=== PATIENT | female | born 1950 | race Caucasian/White ===

== ENCOUNTER 2016-05-27 18:11 | Emergency (ER) | payer MEDICARE, OTHER ==
[~2016-05-27] VITALS: Ht 149.9 cm; Wt 61.7 kg
[~2016-05-27 18:11] MED LIST: AMIO200T2 PO; AMLO1TAB95 PO; ASPI81TA44 PO; BISA10SU55 RC; BUDE10.2 IH; CLON0.2T PO; CYCL10TA2 PO; DIPH25CA58 PO; DOCU-27 PO; DRON5CAP PO; ESCI10TA10 PO; FERR-26 PO; FLUD0.1T PO; FURO40TA4 PO; HYDR-2666 PO; HYDR-2679 PO; HYDR-2762 PO; HYDR-971 PO; HYDR25SU RC; IPRA4AER IH; LACT1CAP6 PO; LEVO500T38 PO; LIDO700A4 TP; LOSA100T2 PO; LOSA50TA2 PO; MAGN2400 PO; METO100T11 PO; METO25TA4 PO; OMEP40CA5 PO; ONDA4TAB10 SL; PANT40TA3 PO; POTA10CA PO; POTA99TA PO; PRED20TA PO; RANI150T6 PO; SUCR1TAB PO; SULF1TAB24 PO; VENTOLIN HFA18 GM IH; VENTOLIN HFA18 GM INH
[2016-05-27] MEDS ORDERED: HYDROCODONE/APAP 5/325MG TABLET. PO ONE (20:00)
[2016-05-27 20:04] VITALS: BP 155/97
[2016-05-27] MEDS ORDERED: HYDR-971 PO (20:10)
[2016-05-27] MEDS ORDERED: NAPR500T3 PO (20:10)
--- NOTE | 2016-05-27 20:10 | PHYS DOC ---
Past Medical History Past Medical History: Asthma, CAD, COPD, GERD, High Cholesterol, Hypertension, Pneumonia, Stroke, Other Additional Past Medical Histor: low potassium, CHRONIC PAIN, Stomach Ulcers, "Bad L rotator cuff" Past Surgical History: Cholecystectomy, Hysterectomy, Tonsillectomy, Tubal ligation, Other Additional Past Surgical Histo: rods in her LEFT leg AND LEFT ARM; cardiac cath with stents Additional Information: 04/14 ppd Alcohol Use: None Drug Use: None Adult General Chief Complaint Chief Complaint: UPPER EXTREMITY PAIN HPI HPI This is a 66-year-old female who had seen multiple times before for a variety of pain complaints who presents today with 3-4 days of ongoing left wrist and forearm pain and some mild numbness and tingling in her first 3 digits that she states is worse in the morning upon awakening. She denies any trauma to the left arm whatsoever. She denies any chest pain or shortness of breath she denies any fever or chills. She additionally states she's having chronic pain in all her joints and especially her right knee. She states she's normal prescribed [place] but has run out of her pain meds. She is scheduled to follow with her primary care doctor in the next several weeks but states her pain is too significant for that follow-up. Review of Systems Review of Systems Constitutional: Denies fever or chills [] Eyes: Denies change in visual acuity, redness, or eye pain [] HENT: Denies nasal congestion or sore throat [] Respiratory: Denies cough or shortness of breath [] Cardiovascular: No additional information not addressed in HPI [] GI: Denies abdominal pain, nausea, vomiting, bloody stools or diarrhea [] : Denies dysuria or hematuria [] Musculoskeletal: Denies back pain or joint pain [] Integument: Denies rash or skin lesions [] Neurologic: Denies headache, focal weakness or sensory changes [] Endocrine: Denies polyuria or polydipsia [] Current Medications Current Medications Current Medications Medications (Trade) Dose Ordered Sig/Hitesh Start Time Stop Time Status Last Admin Dose Admin Acetaminophen/ Hydrocodone Bitart (Lortab 5/325) 1 tab 1X ONCE 05/27/16 20:00 05/27/16 20:03 DC 05/27/16 20:14 1 TAB Allergies Allergies Allergies Coded Allergies Type Severity Reaction Last Updated Verified aspirin Adverse Reaction Intermediate Nausea 04/12/16 Yes tolmetin sodium Adverse Reaction Intermediate Nausea 04/12/16 Yes Physical Exam Physical Exam Constitutional: Well developed, well nourished, no acute distress, non-toxic appearance. [] HENT: Normocephalic, atraumatic, bilateral external ears normal, oropharynx moist, no oral exudates, nose normal. [] Eyes: PERRLA, EOMI, conjunctiva normal, no discharge. [] Neck: Normal range of motion, no tenderness, supple, no stridor. [] Cardiovascular:Heart rate regular rhythm, no murmur [] Lungs & Thorax: Bilateral breath sounds clear to auscultation [] Abdomen: Bowel sounds normal, soft, no tenderness, no masses, no pulsatile masses. [] Skin: Warm, dry, no erythema, no rash. [] Back: No tenderness, no CVA tenderness. [] Extremities: Mild tenderness to the left wrist and forearm, there is no obvious swelling or deformity, there is no erythema, no cyanosis, no clubbing, ROM intact, no edema. [] Neurologic: Alert and oriented X 3, normal motor function, normal sensory function, no focal deficits noted. [] Psychologic: Affect normal, judgement normal, mood normal. [] Current Patient Data Vital Signs Vital Signs Date Time Temp Pulse Resp B/P Pulse Ox O2 Delivery O2 Flow Rate FiO2 05/27/16 20:14 Room Air 05/27/16 20:04 76 17 155/97 99 05/27/16 18:45 97.6 97.6 EKG EKG EKG as interpreted by me shows a sinus rhythm with a rate of 75 bpm. There are no acute ST findings on this EKG. Radiology/Procedures Radiology/Procedures [] Course & Med Decision Making Course & Med Decision Making Pertinent Labs and Imaging studies reviewed. (See chart for details) This 66 yo old female has symptoms and history concerning for a possible carpal tunnel syndrome. I will be placing the patient in a wrist splint and prescribing her a course of Naprosyn for the next several days as well as a few [place] tablets that she's instructed to take only at night to help with her pain. I discussed the need that she is to follow closely with her primary care doctor and to remain in her splint until that time and to especially wear it at night. There is no indication to perform any laboratory workup or imaging as her history denies any trauma and there is no significant findings on my physical exam. Dragon Disclaimer Dragon Disclaimer This electronic medical record was generated, in whole or in part, using a voice recognition dictation system. Departure Departure Impression: Primary Impression: Wrist pain, left Disposition: 01 HOME, SELF-CARE Admitting Physician: Other Condition: STABLE Referrals: UNKNOWN PCP NAME (PCP) Patient Instructions: Carpal Tunnel Syndrome, [id number], Wrist Splint, Easy- to-Read Additional Instructions: Please remain in your wrist brace until you can receive follow up. Take your pain medication at night to help rest. Take your anti-inflammatories during the day as prescribed. Return to the ER if you develop any worsening of your symptoms. Scripts Naproxen 500 Mg [id number] Mg PO BID #10 Prov:OMID KEY DO 05/27/16 Hydrocodone/Apap 5-325 ([place] 5-325 Tablet)1 Each Tablet1 Tab PO PRN Q6HRS PRN PAIN #8 TAB Prov:OMID KEY DO 05/27/16 OMID KEY DO May 27, 2016 20:10
--- NOTE | 2016-05-28 08:16 | EKG ---
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
== END 2016-05-27 20:15 | disposition home or self-care (01) ==
LOC: ER 18:11
DX: M25.532 Pain in left wrist (principal); M79.632 Pain in left forearm; R20.0 Anesthesia of skin; R20.2 Paresthesia of skin; G89.29 Other chronic pain; J45.909 Unspecified asthma, uncomplicated; I25.10 Atherosclerotic heart disease of native coronary artery without angina pectoris; J44.9 Chronic obstructive pulmonary disease, unspecified; K21.9 Gastro-esophageal reflux disease without esophagitis; E78.00 Pure hypercholesterolemia, unspecified; I10 Essential (primary) hypertension; F17.210 Nicotine dependence, cigarettes, uncomplicated; Z95.5 Presence of coronary angioplasty implant and graft; Z86.73 Personal history of transient ischemic attack (TIA), and cerebral infarction without residual deficits; Z87.01 Personal history of pneumonia (recurrent); Z88.8 Allergy status to other drugs, medicaments and biological substances; Z88.6 Allergy status to analgesic agent
CPT/HCPCS: 29125; 93005; 99283-25

== ENCOUNTER 2016-06-21 22:20 | Emergency (ER) | payer MEDICARE, OTHER ==
[~2016-06-21 22:20] MED LIST changes: +NAPR500T3 PO
[2016-06-21 22:27] VITALS: BP 147/93
--- NOTE | 2016-06-21 22:51 | PHYS DOC ---
Past Medical History Past Medical History: Asthma, CAD, COPD, GERD, High Cholesterol, Hypertension, Pneumonia, Stroke, Other Additional Past Medical Histor: low potassium, CHRONIC PAIN, Stomach Ulcers, "Bad L rotator cuff" Past Surgical History: Cholecystectomy, Hysterectomy, Tonsillectomy, Tubal ligation, Other Additional Past Surgical Histo: rods in her LEFT leg AND LEFT ARM; cardiac cath with stents Alcohol Use: None Drug Use: None Adult General Chief Complaint Chief Complaint: CHEST PAIN HPI HPI Patient is a 66 year old female with uncontrolled GERD who presents by EMS for epigastric abdominal burning pain radiating into her chest after choking on a piece of meat. She felt a piece of meat catch in her throat, she coughed until it came up. She then had 2 more episodes of emesis that were nonbloody and nonbilious. She has no further nausea. States her pain is exactly like prior GERD-like pain. She denies fever or chills, dyspnea, palpitations, diaphoresis, lightheadedness, diarrhea, constipation, dysuria. Review of Systems Review of Systems Constitutional: Denies fever or chills [] Eyes: Denies change in visual acuity, redness, or eye pain [] HENT: Denies nasal congestion or sore throat [] Respiratory: Denies cough or shortness of breath [] Cardiovascular: No additional information not addressed in HPI [] GI: Denies bloody stools or diarrhea [] : Denies dysuria or hematuria [] Musculoskeletal: Denies back pain or joint pain [] Integument: Denies rash or skin lesions [] Neurologic: Denies headache, focal weakness or sensory changes [] Endocrine: Denies polyuria or polydipsia [] Current Medications Current Medications Current Medications Medications (Trade) Dose Ordered Sig/[facility] Start Time Stop Time Status Last Admin Dose Admin Multi-Ingredient Mouthwash/Gargle (Gi Cocktail Single Dose) 15 ml 1X ONCE 06/21/16 23:00 06/21/16 23:01 DC 06/21/16 22:59 15 ML Allergies Allergies Allergies Coded Allergies Type Severity Reaction Last Updated Verified aspirin Adverse Reaction Intermediate Nausea 04/12/16 Yes tolmetin sodium Adverse Reaction Intermediate Nausea 04/12/16 Yes Physical Exam Physical Exam Constitutional: Well developed, well nourished, no acute distress, non-toxic appearance. [] HENT: Normocephalic, atraumatic, bilateral external ears normal, oropharynx moist, no oral exudates, nose normal. [] Eyes: PERRLA, EOMI. [] Neck: Normal range of motion, supple. [] Cardiovascular:Heart rate regular rhythm [] Lungs & Thorax: Bilateral breath sounds clear to auscultation [] Abdomen: Bowel sounds normal, soft, no tenderness. [] Skin: Warm, dry, no erythema, no rash. [] Back: Normal ROM. [] Extremities: No tenderness, ROM intact, no edema. [] Neurologic: Alert and oriented X 3, normal motor function, normal sensory function, no focal deficits noted. [] Psychologic: Affect normal, judgement normal, mood normal. [] Current Patient Data Vital Signs Vital Signs Date Time Temp Pulse Resp B/P Pulse Ox O2 Delivery O2 Flow Rate FiO2 06/21/16 22:27 97.8 70 20 147/93 99 Room Air 97.8 Lab Values Laboratory Tests Test 06/21/16 22:46 Sodium Level 143mmol/L (136-145) Potassium Level 3.8mmol/L (3.5-5.1) Chloride Level 105mmol/L (98-107) Carbon Dioxide Level 28mmol/L (21-32) Anion Gap 10 (6-14) Blood Urea Nitrogen 14mg/dL (7-20) Creatinine 0.7mg/dL (0.6-1.0) Estimated GFR (Cockcroft-Gault) 83.5 Glucose Level 134mg/dL (70-99) H Calcium Level 8.6mg/dL (8.5-10.1) Laboratory Tests 06/21/16 22:46 EKG EKG EKG as interpreted by me as normal sinus rhythm, rate 68, no ST-T changes, normal intervals, no ectopy Course & Med Decision Making Course & Med Decision Making Pertinent Labs and Imaging studies reviewed. (See chart for details) Workup is unremarkable. She is feeling better after medications. She is tolerating oral intake. Return precautions given. She understands and agrees with plan. Dragon Disclaimer Dragon Disclaimer This electronic medical record was generated, in whole or in part, using a voice recognition dictation system. Departure Departure Impression: Primary Impression: Epigastric abdominal pain Disposition: 01 HOME, SELF-CARE Condition: STABLE Referrals: UNKNOWN PCP NAME (PCP) Patient Instructions: Diet for Gastroesophageal Reflux Disease, Adult, Easy-to- Read Additional Instructions: Take famotidine to help with GERD. Follow-up with your primary care doctor. Return for any concerns. Scripts Famotidine 20 Mg [id number] Mg PO BID #30 TAB Prov:Courtney MAIN MD 06/21/16 Courtney MAIN MD Jun 21, 2016 22:51
[2016-06-21] MEDS ORDERED: LIDO:MAALOX:DONNATAL 1:1:1 15 ML SINGLE DOSE SWSW ONE (23:00)
[2016-06-21 23:06] LABS: CALCIUM 8.6 mg/dL (8.5-10.1); CREATININE 0.7 mg/dL (0.6-1.0); GFR 83.5; POTASSIUM 3.8 mmol/L (3.5-5.1)
[2016-06-21] MEDS ORDERED: FAMO20TA5 PO (23:33)
--- NOTE | 2016-06-22 12:51 | EKG ---
[facility] [address] [place] [address] Test Date: 2016-06-21 Test Time: 22:25:22 Pat Name: JAMISON EVANS Department: Room: Gender: F [employer] Cook: : 1950 Requested By: Courtney MAIN Order Number: [id number] Reading MD: Measurements Intervals [place] Rate: 68 P: -66 [place]: 110 QRS: 0 QRSD: 78 T: 64 QT: 428 QTc: 460 Interpretive Statements SUPRAVENTRICULAR RHYTHM LEFTWARD AXIS T ABNORMALITY IN HIGH LATERAL LEADS RI6.01 Unconfirmed report No previous ECG available for comparison
== END 2016-06-21 23:49 | disposition home or self-care (01) ==
LOC: ER 22:20
DX: R10.13 Epigastric pain (principal); R11.10 Vomiting, unspecified; R05 Cough; K21.9 Gastro-esophageal reflux disease without esophagitis; E78.00 Pure hypercholesterolemia, unspecified; I10 Essential (primary) hypertension; Z86.73 Personal history of transient ischemic attack (TIA), and cerebral infarction without residual deficits; I25.10 Atherosclerotic heart disease of native coronary artery without angina pectoris; J44.0 Chronic obstructive pulmonary disease with (acute) lower respiratory infection; J45.909 Unspecified asthma, uncomplicated; Z90.710 Acquired absence of both cervix and uterus; Z90.49 Acquired absence of other specified parts of digestive tract; Z98.51 Tubal ligation status; Z90.89 Acquired absence of other organs; Z95.5 Presence of coronary angioplasty implant and graft
CPT/HCPCS: 36415; 80048; 93005; 99285-25

== ENCOUNTER 2016-07-20 14:22 | Emergency (ER) | payer MEDICARE, OTHER ==
[~2016-07-20] VITALS: Ht 149.9 cm; Wt 62.6 kg
[2016-07-20 14:22] VITALS: BP 188/124
[~2016-07-20 14:22] MED LIST changes: +FAMO20TA5 PO
[2016-07-20] MEDS ORDERED: HYDR-971 PO (14:59)
--- NOTE | 2016-07-20 14:59 | PHYS DOC ---
Past Medical History Past Medical History: Asthma, CAD, COPD, GERD, High Cholesterol, Hypertension, Pneumonia, Stroke, Other Additional Past Medical Histor: low potassium, CHRONIC PAIN, Stomach Ulcers, "Bad L rotator cuff" Past Surgical History: Cholecystectomy, Hysterectomy, Tonsillectomy, Tubal ligation, Other Additional Past Surgical Histo: rods in her LEFT leg AND LEFT ARM; cardiac cath with stents Alcohol Use: None Drug Use: None Adult General Chief Complaint Chief Complaint: UPPER EXTREMITY PAIN HPI HPI 66-year-old female with a history of chronic shoulder pain presents with agonizing pain in her shoulders. She states she is worse because she is out of her hydrocodone at home. She denies any new injury. She states this pain is the same as it always is and this helped with hydrocodone. She denies any chest pain or shortness of breath. [] Review of Systems Review of Systems Constitutional: Denies fever or chills [] Eyes: Denies change in visual acuity, redness, or eye pain [] HENT: Denies nasal congestion or sore throat [] Respiratory: Denies cough or shortness of breath [] Cardiovascular: No additional information not addressed in HPI [] GI: Denies abdominal pain, nausea, vomiting, bloody stools or diarrhea [] : Denies dysuria or hematuria [] Musculoskeletal: Per history of present illness [] Integument: Denies rash or skin lesions [] Neurologic: Denies headache, focal weakness or sensory changes [] Endocrine: Denies polyuria or polydipsia [] Current Medications Current Medications Current Medications Medications (Trade) Dose Ordered Sig/Hitesh Start Time Stop Time Status Last Admin Dose Admin Acetaminophen/ Hydrocodone Bitart (Lortab 5/325) 2 tab 1X ONCE 07/20/16 15:00 07/20/16 15:01 UNV Allergies Allergies Allergies Coded Allergies Type Severity Reaction Last Updated Verified aspirin Adverse Reaction Intermediate Nausea 04/12/16 Yes tolmetin sodium Adverse Reaction Intermediate Nausea 04/12/16 Yes Physical Exam Physical Exam Constitutional: Well developed, well nourished, no acute distress, non-toxic appearance. [] HENT: Normocephalic, atraumatic, bilateral external ears normal, oropharynx moist, no oral exudates, nose normal. [] Eyes: PERRLA, EOMI, conjunctiva normal, no discharge. [] Neck: Normal range of motion, no tenderness, supple, no stridor. [] Cardiovascular:Heart rate regular rhythm, no murmur [] Lungs & Thorax: Bilateral breath sounds clear to auscultation [] Abdomen: Bowel sounds normal, soft, no tenderness, no masses, no pulsatile masses. [] Skin: Warm, dry, no erythema, no rash. [] Back: No tenderness, no CVA tenderness. [] Extremities: No tenderness, no cyanosis, no clubbing, ROM intact, no edema. [] Neurologic: Alert and oriented X 3, normal motor function, normal sensory function, no focal deficits noted. [] Psychologic: Affect normal, judgement normal, mood normal. [] Current Patient Data Vital Signs Vital Signs Date Time Temp Pulse Resp B/P Pulse Ox O2 Delivery O2 Flow Rate FiO2 07/20/16 14:22 98.4 81 20 97 Room Air 98.4 EKG EKG [] Radiology/Procedures Radiology/Procedures [] Course & Med Decision Making Course & Med Decision Making Pertinent Labs and Imaging studies reviewed. (See chart for details) [ED course: Evaluation reveals a 66-year-old female with chronic pain. I will write her prescription for the next 3 days of pain medicine she needs to follow- up with her pain physician this week for recheck.] Dragon Disclaimer Dragon Disclaimer This electronic medical record was generated, in whole or in part, using a voice recognition dictation system. Departure Departure Impression: Primary Impression: Shoulder pain, bilateral Disposition: HOME, SELF-CARE Condition: STABLE Referrals: UNKNOWN PCP NAME (PCP) Patient Instructions: Chronic Pain, Chronic Pain Management Additional Instructions: Thank you for allowing us to participate in your care today. Followup with your primary care physician in 3 days if your symptoms do not improve. Return to the emergency department you have any new or concerning findings. This should be evaluated by the primary care physician and any necessary consulting services for continued management within a few days after discharge. Return to emergency room if you have any new or concerning symptoms including but not limited to fever, chills, nausea, vomiting, intractable pain, any new rashes, chest pain, shortness of air, uncontrolled bleeding, difficulty breathing, and/or vision loss. You may have been prescribed medication that can change in your level of thinking and ability to operate machinery. These medications include hydrocodone and Ativan. Also, Benadryl has been known to do this as well. Be sure to check with your pharmacist and ask if the medications you've prescribed can affect your level of consciousness. I recommend not operating heavy machinery or driving while on medication such as these. Scripts Hydrocodone/Apap 5-325 ([place] 5-325 Tablet)1 Each Tablet1 Tab PO PRN Q6HRS PRN PAIN #14 TAB Prov:MACK CAR DO 07/20/16 Problem Qualifiers Primary Impression: Shoulder pain, bilateral Chronicity: chronic Qualified Code: M25.512 - Pain in left shoulder MACK CAR DO Jul 20, 2016 14:59
[2016-07-20] MEDS ORDERED: HYDROCODONE/APAP 5/325MG TABLET. PO ONE (15:00)
== END 2016-07-20 15:32 | disposition home or self-care (01) ==
LOC: ER 14:22
DX: G89.29 Other chronic pain (principal); M25.511 Pain in right shoulder; M25.512 Pain in left shoulder; J45.909 Unspecified asthma, uncomplicated; I25.10 Atherosclerotic heart disease of native coronary artery without angina pectoris; K21.9 Gastro-esophageal reflux disease without esophagitis; E78.00 Pure hypercholesterolemia, unspecified; I10 Essential (primary) hypertension; J44.9 Chronic obstructive pulmonary disease, unspecified; Z86.73 Personal history of transient ischemic attack (TIA), and cerebral infarction without residual deficits; Z88.6 Allergy status to analgesic agent; Z88.8 Allergy status to other drugs, medicaments and biological substances
CPT/HCPCS: 99283

== ENCOUNTER 2016-08-25 13:05 | Emergency (ER) | payer MEDICARE, OTHER ==
[~2016-08-25] VITALS: Ht 147.3 cm; Wt 64.4 kg
[~2016-08-25 13:05] MED LIST changes: -POTA10CA PO; +POTASSIUM CHLO10 MEQ PO
--- NOTE | 2016-08-25 13:43 | PHYS DOC ---
Past Medical History Past Medical History: Asthma, CAD, COPD, GERD, High Cholesterol, Hypertension, Pneumonia, Stroke, Other Additional Past Medical Histor: low potassium, CHRONIC PAIN, Stomach Ulcers, "Bad L rotator cuff" Past Surgical History: Cholecystectomy, Hysterectomy, Tonsillectomy, Tubal ligation, Other Additional Past Surgical Histo: rods in her LEFT leg AND LEFT ARM; cardiac cath with stents Alcohol Use: None Drug Use: None Adult General Chief Complaint Chief Complaint: RIB PAIN HPI HPI Patient is a 66 year old female who presents with complaint of right-sided rib pain. Patient states that she suffered a fall 2 days ago at her home. Patient states that she tripped over her bed and fell into the door frame of her closet in her bedroom. Patient denied any lightheadedness or dizziness prior to the fall. Patient states that she hit the right side of her chest as well as the right side of her head. Patient denies any loss consciousness. Patient states that she has been having worsening severe pain along the right side of her rib cage since the fall. Patient has been ambulatory but states that she has been having difficulty with bending over as well as with lifting due to pain. The patient states that she is on chronic pain medication and has been out of her medication for the past 5 days. The patient states that she is not due to see her primary doctor until September 03. Patient takes hydrocodone 7.5 mg tablets for treatment of chronic back pain. Patient denies any other symptoms currently. Patient rates her pain currently is 10 out of 10. Review of Systems Review of Systems Constitutional: Denies fever or chills [] Eyes: Denies change in visual acuity, redness, or eye pain [] HENT: Denies nasal congestion or sore throat [] Respiratory: Denies cough or shortness of breath [] Cardiovascular: Denies substernal chest pain or edema [] GI: Denies abdominal pain, nausea, vomiting, bloody stools or diarrhea [] : Denies dysuria or hematuria [] Musculoskeletal: Right-sided rib pain [] Integument: Denies rash or skin lesions [] Neurologic: Headache, denies focal weakness or sensory changes [] Current Medications Current Medications Current Medications Medications (Trade) Dose Ordered Sig/Hitesh Start Time Stop Time Status Last Admin Dose Admin Acetaminophen/ Hydrocodone Bitart (Lortab 7.5/325) 1 tab 1X ONCE 08/25/16 15:45 08/25/16 15:46 DC 08/25/16 15:24 1 TAB Hydromorphone HCl (Dilaudid) 1 mg 1X ONCE 08/25/16 13:45 08/25/16 13:46 DC 08/25/16 13:50 1 MG Ondansetron HCl (Zofran Odt) 4 mg 1X ONCE 08/25/16 13:45 08/25/16 13:46 DC 08/25/16 13:50 4 MG Allergies Allergies Allergies Coded Allergies Type Severity Reaction Last Updated Verified aspirin Adverse Reaction Intermediate Nausea 04/12/16 Yes tolmetin sodium Adverse Reaction Intermediate Nausea 04/12/16 Yes Physical Exam Physical Exam Constitutional: Alert, afebrile, appears in mild discomfort. [] HENT: Normocephalic, atraumatic, bilateral external ears normal, oropharynx moist, no oral exudates, nose normal. [] Eyes: PERRLA, EOMI, conjunctiva normal, no discharge. [] Neck: Normal range of motion, no tenderness, supple, no stridor. [] Cardiovascular:Heart rate regular rhythm, no murmur [] Lungs & Thorax: Tenderness to palpation along right rib cage at midaxillary line , lungs clear to auscultation bilaterally, no palpable crepitus [] Abdomen: Bowel sounds normal, soft, no tenderness, no masses, no pulsatile masses. [] Skin: Warm, dry, no erythema, no rash. [] Back: No tenderness, no CVA tenderness. [] Extremities: Right elbow abrasion measuring 2 cm, no cyanosis, no clubbing, ROM intact, no edema. [] Neurologic: Alert and oriented X 3, normal motor function, normal sensory function, no focal deficits noted. [] Current Patient Data Vital Signs Vital Signs Date Time Temp Pulse Resp B/P (MAP) Pulse Ox O2 Delivery O2 Flow Rate FiO2 08/25/16 15:24 Room Air 08/25/16 15:16 109/82 (91) 92 08/25/16 14:59 74 08/25/16 13:39 22 08/25/16 13:08 99.9 99.9 EKG EKG Interpreted by me: Heart rate 85, sinus rhythm, normal intervals, normal axis, no acute ST/T-wave abnormalities present [] Radiology/Procedures Radiology/Procedures [facility] [address] [place] [address] IMAGING REPORT Signed PATIENT: JAMISON EVANS ACCOUNT: [id number] : 1950 LOCATION: ER AGE: 66 SEX: F EXAM STATUS: REG ER ORD. PHYSICIAN: BG HARO MD REASON: fall 2 days ago, right-sided rib pain PROCEDURE: RIBS RIGHT AND PA CHEST Examination: PA view the chest with right RIBS History: History of fall 3 days prior, pain mid to lower ribs Comparison: 04/12/2016 Findings : The cardiomediastinal silhouette grossly appears unremarkable. There is no acute infiltrate or visualize pneumothorax identified. Examination limited because of demineralization. Old fractures of the right upper posterior ribs are again identified. An obvious displaced acute right rib fracture is not clearly identified. Impression: 1. No acute cardiopulmonary findings. 2. An obvious displaced right rib fracture is not identified. 2. Old posterior right rib fractures again identified. DICTATED and SIGNED BY: LYNETTE NAVARRO MD DATE: 08/25/16 1438 CC: BG HARO MD; NO PCP ~ [] Course & Med Decision Making Course & Med Decision Making Pertinent Labs and Imaging studies reviewed. (See chart for details) Patient's x-rays were negative for acute fractures. I spoke with the patient's primary physician, Dr. Holland, who confirmed that the patient has an appointment on September 03, 2016. She gave permission to write a small prescription to the patient for hydrocodone to help treat her symptoms until she can follow-up at her next appointment. Spoke with the patient regarding plan of care and she is in agreement. The patient was advised return to emergency department for any worsening symptoms. Patient voiced understanding and in agreement with treatment plan. Dragon Disclaimer Dragon Disclaimer This electronic medical record was generated, in whole or in part, using a voice recognition dictation system. Departure Departure Impression: Primary Impression: Contusion of rib on right side Disposition: HOME, SELF-CARE Condition: IMPROVED Referrals: NON,STAFF (PCP) Patient Instructions: Rib Contusion Additional Instructions: Follow-up with your primary doctor in 1 week. Return to the emergency department for any worsening symptoms. Scripts Hydrocodone Bit/Acetaminophen (HYDROCODONE-APAP 7.5-325 ) 1 Each Tablet 1 TAB PO Q6HRS Y for PAIN, #20 TAB 0 Refills Prov: BG HARO MD 08/25/16 Problem Qualifiers Primary Impression: Contusion of rib on right side Encounter type: initial encounter Qualified Codes: S20.211A - Contusion of right front wall of thorax, initial encounter BG HARO MD August 25, 2016 13:43
[2016-08-25] MEDS ORDERED: HYDROmorphone 2 MG/ML VIAL IM ONE (13:45)
[2016-08-25] MEDS ORDERED: ONDANSETRON ODT 4 MG TAB.RAPDIS. PO ONE (13:45)
[2016-08-25] MEDS ORDERED: METO25TA4 PO (14:07)
[2016-08-25] MEDS ORDERED: AMLO1TAB95 PO (14:07)
[2016-08-25] MEDS ORDERED: POTA20TA82 PO (14:07)
[2016-08-25] MEDS ORDERED: OMEP20TA PO (14:07)
--- NOTE | 2016-08-25 14:45 | RAD ---
Examination: PA view the chest with right RIBS History: History of fall 3 days prior, pain mid to lower ribs Comparison: 04/12/2016 Findings : The cardiomediastinal silhouette grossly appears unremarkable. There is no acute infiltrate or visualize pneumothorax identified. Examination limited because of demineralization. Old fractures of the right upper posterior ribs are again identified. An obvious displaced acute right rib fracture is not clearly identified. Impression: 1. No acute cardiopulmonary findings. 2. An obvious displaced right rib fracture is not identified. 2. Old posterior right rib fractures again identified.
[2016-08-25 15:16] VITALS: BP 109/82
--- NOTE | 2016-08-25 15:19 | EKG ---
[facility] [address] [place] [address] Test Date: 2016-08-25 Test Time: 13:23:49 Pat Name: JAMISON EVANS Department: Room: Gender: F [employer]: : 1950 Requested By: BG HARO Order Number: [id number] Reading MD: Stevo Nicholas Measurements Intervals [place] Rate: 85 P: -22 AK: 120 QRS: 10 QRSD: 76 T: 64 QT: 374 QTc: 445 Interpretive Statements SINUS RHYTHM Electronically Signed On 08-26-2016 10:46:59 CDT by Stevo Nicholas
[2016-08-25] MEDS ORDERED: HYDROcodone/APAP 7.5/325MG 1 TAB TABLET PO ONE (15:45)
[2016-08-25] MEDS ORDERED: HYDR-2762 PO (16:05)
== END 2016-08-25 16:20 | disposition home or self-care (01) ==
LOC: ER 13:05
DX: S20.211A Contusion of right front wall of thorax, initial encounter (principal); E78.00 Pure hypercholesterolemia, unspecified; I10 Essential (primary) hypertension; K21.9 Gastro-esophageal reflux disease without esophagitis; J44.9 Chronic obstructive pulmonary disease, unspecified; I25.10 Atherosclerotic heart disease of native coronary artery without angina pectoris; Z86.73 Personal history of transient ischemic attack (TIA), and cerebral infarction without residual deficits; G89.29 Other chronic pain; Z90.710 Acquired absence of both cervix and uterus; Z90.49 Acquired absence of other specified parts of digestive tract; Z98.51 Tubal ligation status; Z95.5 Presence of coronary angioplasty implant and graft; Z88.6 Allergy status to analgesic agent; Z88.8 Allergy status to other drugs, medicaments and biological substances; W06.XXXA Fall from bed, initial encounter; Y93.89 Activity, other specified; Y99.8 Other external cause status; Y92.89 Other specified places as the place of occurrence of the external cause
CPT/HCPCS: 71101; 93005; 96372; 99284; J1170; Q0162

== ENCOUNTER 2016-11-01 17:10 | Emergency (ER) | payer MEDICARE, OTHER ==
[~2016-11-01] VITALS: Ht 154.9 cm; Wt 63.5 kg
[~2016-11-01 17:10] MED LIST changes: +DOCU-109 PO; -DOCU-27 PO; -ESCI10TA10 PO; -HYDR-2666 PO; +HYDR-2758 PO; -LEVO500T38 PO; +LEVO500T59 PO; +LEXAPRO10 MG PO; +OMEP20TA8 PO; +POTA20TA82 PO
[2016-11-01 18:00] VITALS: BP 118/57
--- NOTE | 2016-11-01 18:39 | ED.ADGEN ---
Past Medical History Past Medical History: Asthma, CAD, COPD, GERD, High Cholesterol, Hypertension, Pneumonia, Stroke, Other Additional Past Medical Histor: low potassium, CHRONIC PAIN, Stomach Ulcers, "Bad L rotator cuff" Past Surgical History: Cholecystectomy, Hysterectomy, Tonsillectomy, Tubal ligation, Other Additional Past Surgical Histo: rods in her LEFT leg AND LEFT ARM; cardiac cath with stents Alcohol Use: None Drug Use: None Adult General Chief Complaint Chief Complaint: HEADACHE HPI HPI Patient is a 66 year old female with history of COPD, hypertension, CAD, previous CVA, chronic back pain and migraines who presents with continuous headache for the past 10 days. Patient describes headache as dull and throbbing. Symptoms are mild to moderate and associated with light sensitivity and nausea. Patient reports floating left eyes. But otherwise denies change in vision. Headache was not sudden onset. Denies neck stiffness, rash, fever, extremity weakness or loss of sensation. no other acute symptoms or complaints.Patient states she normally treats migraine headaches and chronic pain with hydrocodone, which she ran out of 4 days ago. Patient does not see her PCP for refill for another 2 days. Review of Systems Review of Systems Review symptoms as per history of present illness. All other review symptoms are negative. Current Medications Current Medications Current Medications Medications (Trade) Dose Ordered Sig/Hitesh Start Time Stop Time Status Last Admin Dose Admin Acetaminophen/ Hydrocodone Bitart (Lortab 5/325) 1 tab 1X ONCE 11/01/16 18:45 11/01/16 18:46 Ondansetron HCl (Zofran Odt) 4 mg 1X ONCE 11/01/16 18:45 11/01/16 18:46 Allergies Allergies Allergies Coded Allergies Type Severity Reaction Last Updated Verified aspirin Adverse Reaction Intermediate Nausea 04/12/16 Yes tolmetin sodium Adverse Reaction Intermediate Nausea 04/12/16 Yes Physical Exam Physical Exam Constitutional: Well developed, well nourished. HENT: Normocephalic, atraumatic, bilateral external ears normal, oropharynx moist, no oral exudates, nose normal. Eyes: PERRLA, EOMI, conjunctiva normal. Neck: Normal range of motion, no tenderness. Cardiovascular:Heart rate regular rhythm. Lungs & Thorax: Bilateral breath sounds clear to auscultation. Abdomen: Bowel sounds normal, soft, no tenderness. Skin: Warm, drr. Back: No tenderness, no CVA tenderness. Extremities: No tenderness. Neurologic: Alert and oriented X 3, normal motor function, normal sensory function or motor deficits. Psychologic: Affect normal, judgement normal, mood normal. Current Patient Data Vital Signs Vital Signs Date Time Temp Pulse Resp B/P (MAP) Pulse Ox O2 Delivery O2 Flow Rate FiO2 11/01/16 17:30 98.4 60 16 140/58 (85) 96 Room Air 98.4 EKG EKG [] Radiology/Procedures Radiology/Procedures [] Course & Med Decision Making Course & Med Decision Making Pertinent Labs and Imaging studies reviewed. (See chart for details) [Migraine headache, without vomiting, and normal neurologic exam and with svital signs. Patient appears comfortable in the room, immediately turning the TV up loud upon arrival. Patient given single dose of hydrocodone in the ED. will provide brief course of pain medication and nausea medication until she can be seen by her PCP on Thursday.Return precautions reviewed. Dragon Disclaimer Dragon Disclaimer This electronic medical record was generated, in whole or in part, using a voice recognition dictation system. KODI RUBY DO Nov 01, 2016 18:39
[2016-11-01] MEDS ORDERED: HYDROcodone/APAP 5/325MG 1 TAB TABLET PO ONE (18:45)
[2016-11-01] MEDS ORDERED: ONDANSETRON ODT 4 MG TAB.RAPDIS. PO ONE ×2 (18:45)
== END 2016-11-01 18:40 | disposition home or self-care (01) ==
LOC: ER 17:10
DX: G43.909 Migraine, unspecified, not intractable, without status migrainosus (principal); E78.00 Pure hypercholesterolemia, unspecified; I10 Essential (primary) hypertension; I25.10 Atherosclerotic heart disease of native coronary artery without angina pectoris; J44.9 Chronic obstructive pulmonary disease, unspecified; K21.9 Gastro-esophageal reflux disease without esophagitis; Z86.73 Personal history of transient ischemic attack (TIA), and cerebral infarction without residual deficits; Z87.01 Personal history of pneumonia (recurrent); Z90.49 Acquired absence of other specified parts of digestive tract; Z98.51 Tubal ligation status; Z95.5 Presence of coronary angioplasty implant and graft; G89.29 Other chronic pain; Z88.6 Allergy status to analgesic agent; Z88.8 Allergy status to other drugs, medicaments and biological substances
CPT/HCPCS: 99283; Q0162

== ENCOUNTER 2017-03-24 22:42 | Emergency (ER) | payer MEDICARE, OTHER ==
[~2017-03-24] VITALS: Ht 149.9 cm; Wt 66.2 kg
[~2017-03-24 22:42] MED LIST changes: +METO-247 PO; -METO100T11 PO; -NAPR500T3 PO; +NAPR500T4 PO
[2017-03-24 23:35] LABS: BILIRUBIN,URINE NEGATIVE (NEG); GLUCOSE,URINE NEGATIVE (NEG); NITRITE,URINE NEGATIVE (NEG); PROTEIN,URINE NEGATIVE (NEG-TRACE)
[2017-03-24 23:40] LABS: BACTERIA,URINE MODERATE /HPF (0-FEW); SQUAMOUS EPITHELIAL CELL,UR FEW /LPF
[2017-03-24] MEDS ORDERED: IPRATRPIUM/ALBUTEROL 0.5/2.5MG 3 ML NEBU. NEB ONE (23:45)
[2017-03-24] MEDS ORDERED: LIDOCAINE 2%/EPI 1:100,000 20 ML VIAL. IJ ONE (23:45)
[2017-03-24] MEDS ORDERED: OXYMETAZOLINE 0.05% NASAL SPRAY 30ML BOTTLE. NS ONE (23:45)
[2017-03-24] MEDS ORDERED: predniSONE 20 MG TABLET PO ONE (23:45)
[2017-03-24] MEDS ORDERED: SILVER NITRATE STICK TP ONE (23:45)
[2017-03-24] MEDS ORDERED: NEOMY/BACITR/POLYMYXIN OINT PACKET. TP ONE (23:45)
--- NOTE | 2017-03-25 00:23 | PHYS DOC ---
Past Medical History Past Medical History: Asthma, COPD, Hypertension Additional Past Medical Histor: low potassium, CHRONIC PAIN, Stomach Ulcers, "Bad L rotator cuff" Past Surgical History: Hysterectomy, Tonsillectomy Additional Past Surgical Histo: rods in her LEFT leg AND LEFT ARM; cardiac cath with stents Additional Information: 1.5-2 PPD Alcohol Use: None Drug Use: None Adult General Chief Complaint Chief Complaint: [facility] HPI Patient is a 67 year old female presenting to the emergency department for evaluation of cough congestion bloody nose and dysuria. Cough has been going on for approximately 3 days and is productive of yellowish sputum and she has had some shortness of breath and wheezing but she is out of her inhaler. She has a history of COPD. Nose is intermittently bloody when she coughs. She has no bloody nose now. Patient denies fevers chills nausea vomiting. Patient reports that she has dysuria as well. Review of Systems Review of Systems Constitutional: Denies fever or chills [] Eyes: Denies change in visual acuity, redness, or eye pain [] HENT: + nasal congestion, sore throat [] Respiratory: + cough, shortness of breath [] Cardiovascular: No additional information not addressed in HPI [] GI: Denies abdominal pain, nausea, vomiting, bloody stools or diarrhea [] : + dysuria. No hematuria [] Musculoskeletal: Denies back pain or joint pain [] Integument: Denies rash or skin lesions [] Neurologic: Denies headache, focal weakness or sensory changes [] All other systems were reviewed and found to be within normal limits, except as documented in this note. Current Medications Current Medications Current Medications Medications (Trade) Dose Ordered Sig/Hitesh Start Time Stop Time Status Last Admin Dose Admin Acetaminophen/ Hydrocodone Bitart (Lortab 7.5/325) 1 tab 1X ONCE 03/25/17 00:45 03/25/17 00:46 Albuterol Sulfate (Ventolin Neb Soln) 2.5 mg 1X ONCE 03/25/17 00:45 03/25/17 00:46 Albuterol/ Ipratropium (Duoneb) 3 ml 1X ONCE 03/24/17 23:45 03/24/17 23:46 DC 03/24/17 23:53 3 ML Lidocaine/ Epinephrine (Xylocaine 2%-Epi 1:100,000) 20 ml 1X ONCE 03/24/17 23:45 03/24/17 23:46 DC 03/24/17 23:48 20 ML Neomycin/ Polymyxin/ Bacitracin (Triple Antibiotic Ointment) 1 pkt 1X ONCE 03/24/17 23:45 03/24/17 23:46 DC 03/24/17 23:47 1 PKT Oxymetazoline HCl (Afrin) 2 spray 1X ONCE 03/24/17 23:45 03/24/17 23:46 DC 03/24/17 23:47 2 SPRAY Prednisone (Prednisone) 60 mg 1X ONCE 03/24/17 23:45 03/24/17 23:46 DC 03/24/17 23:47 60 MG Silver Nitrate/ Potassium Nitrate 1 each 1X ONCE 03/24/17 23:45 03/24/17 23:46 DC 03/24/17 23:45 1 EACH Allergies Allergies Allergies Coded Allergies Type Severity Reaction Last Updated Verified aspirin Adverse Reaction Intermediate Nausea 04/12/16 Yes tolmetin sodium Adverse Reaction Intermediate Nausea 04/12/16 Yes Physical Exam Physical Exam Constitutional: Well developed, well nourished, no acute distress, non-toxic appearance. [] HENT: Normocephalic, atraumatic, bilateral external ears normal, oropharynx moist, no oral exudates, nose with right side on medial turbinate with bogginess and dried blood noted. Eyes: PERRLA, EOMI, conjunctiva normal, no discharge. [] Neck: Normal range of motion, no tenderness, supple, no stridor. [] Cardiovascular:Heart rate regular rhythm, no murmur [] Lungs & Thorax: Bilateral breath sounds diminished with inspiratory and expiratory wheezing. Abdomen: Bowel sounds normal, soft, no tenderness, no masses, no pulsatile masses. [] Skin: Warm, dry, no erythema, no rash. [] Back: No tenderness, no CVA tenderness. [] Extremities: No tenderness, no cyanosis, no clubbing, ROM intact, no edema. [] Neurologic: Alert and oriented X 3, normal motor function, normal sensory function, no focal deficits noted. [] Current Patient Data Vital Signs Vital Signs Date Time Temp Pulse Resp B/P (MAP) Pulse Ox O2 Delivery O2 Flow Rate FiO2 03/24/17 23:51 98 Room Air 03/24/17 22:58 97.6 75 18 97.6 Lab Values Laboratory Tests Test 03/24/17 23:00 Urine Collection Type Unknown Urine Color Yellow Urine Clarity Clear Urine pH 6.0 Urine Specific [place] 1.025 Urine Protein Negative mg/dL (NEG-TRACE) Urine Glucose (UA) Negative mg/dL (NEG) Urine Ketones (Stick) Negative mg/dL (NEG) Urine Blood Small (NEG) Urine Nitrite Negative (NEG) Urine Bilirubin Negative (NEG) Urine Urobilinogen Dipstick 1.0 mg/dL (0.2 mg/dL) Urine Leukocyte Esterase Small (NEG) Urine RBC 3-5 /HPF (0-2) Urine WBC 5-10 /HPF (0-4) Urine Squamous Epithelial Cells Few /LPF Urine Bacteria Moderate /HPF (0-FEW) Urine Mucus Mod /LPF EKG EKG [] Radiology/Procedures Radiology/Procedures [] Course & Med Decision Making Course & Med Decision Making Patient with moderate amount of bacteria in her urine and she has symptoms she' ll be treated with a 3 day course of Cipro. She will also get treated with steroids and albuterol in addition to recommendations to keep her nasal mucosa moist. Patient is agreeable to discharge and says she will follow with her primary care provider later this week and come back with any new worsening concerns. Patient aware and agreeable with plan for discharge and verbalized understanding of the need for short-term follow-up in the strict ED return precautions discussed worsening pain shortness of breath or other general concerns. Dragon Disclaimer Dragon Disclaimer This electronic medical record was generated, in whole or in part, using a voice recognition dictation system. Departure Departure Impression: Primary Impression: COPD exacerbation Additional Impressions: UTI (lower urinary tract infection) Epistaxis Disposition: 01 HOME, SELF-CARE Condition: STABLE Referrals: NO PCP (PCP) Patient Instructions: Chronic Obstructive Pulmonary Disease Additional Instructions: USE OTC NASONEX AND NEOSPORIN ON NOSE. Scripts Prednisone (PREDNISONE) 50 Mg Tablet 1 TAB PO DAILY, #4 TAB Prov: CHERELLE FNOG DO 03/25/17 Ciprofloxacin Hcl (CIPROFLOXACIN HCL) 250 Mg Tablet 1 TAB PO BID, #6 TAB Prov: CHERELLE FONG DO 03/25/17 Albuterol Sulfate (PROAIR HFA INHALER) 8.5 Gm Hfa.aer.ad 1 PUFF INH Q4HRS Y for SHORTNESS OF BREATH, #1 INHALER 0 Refills Prov: CHERELLE FONG DO 03/25/17 Problem Qualifiers CHERELLE FONG DO Mar 25, 2017 00:23
[2017-03-25] MEDS ORDERED: CIPR250T PO (00:26)
[2017-03-25] MEDS ORDERED: PROAIR HFA8.5 GM INH (00:26)
[2017-03-25] MEDS ORDERED: PRED50TA PO (00:26)
[2017-03-25] MEDS ORDERED: ALBUTEROL SULFATE 2.5 MG/3 ML NEBU. NEB ONE (00:45)
[2017-03-25] MEDS ORDERED: HYDROcodone/APAP 7.5/325MG 1 TAB TABLET PO ONE (00:45)
[2017-03-25 00:47] VITALS: BP 170/86
--- NOTE | 2017-03-28 14:06 | VNOTE ---
CALL BACK NOTE CALL BACK Microbiology 03/24/17 Urine Culture - Final, Complete 03/24/17 Urine Culture Result 1 (MARCELO) - Final, Complete 03/24/17 Urine Culture Result 2 (MARCELO) - Final, Complete 03/24/17 Antimicrobic Susceptibility - Final, Complete Patient was discharged on Cipro, urine culture shows she is resistant. Called and left a message. KITTY BARKLEY APRN Mar 28, 2017 14:06
== END 2017-03-25 01:17 | disposition home or self-care (01) ==
LOC: ER 22:42
DX: R04.0 Epistaxis (principal); J44.1 Chronic obstructive pulmonary disease with (acute) exacerbation; N39.0 Urinary tract infection, site not specified; G89.29 Other chronic pain; J45.909 Unspecified asthma, uncomplicated; I10 Essential (primary) hypertension; F17.200 Nicotine dependence, unspecified, uncomplicated; Z90.710 Acquired absence of both cervix and uterus; Z88.6 Allergy status to analgesic agent; Z88.8 Allergy status to other drugs, medicaments and biological substances
CPT/HCPCS: 81001; 87086; 87186; 94640; 96372; 99284; J3490; J7512; J7613; J7620

== ENCOUNTER 2017-07-30 15:54 | Emergency (ER) | payer OTHER, MEDICARE ==
[2017-07-30] MEDS: MORPHINE SULFATE 4 MG/ML DISP.SYRIN. IM (17:21)
== END 2017-07-30 18:34 | disposition home or self-care (01) ==
LOC: ER 15:54
DX: G89.29 Other chronic pain (principal); M54.5 Low back pain; E78.5 Hyperlipidemia, unspecified; I11.9 Hypertensive heart disease without heart failure; J44.1 Chronic obstructive pulmonary disease with (acute) exacerbation; F17.200 Nicotine dependence, unspecified, uncomplicated; Z90.710 Acquired absence of both cervix and uterus; Z95.5 Presence of coronary angioplasty implant and graft; Z87.19 Personal history of other diseases of the digestive system; Z88.6 Allergy status to analgesic agent; Z88.8 Allergy status to other drugs, medicaments and biological substances; W01.0XXA Fall on same level from slipping, tripping and stumbling without subsequent striking against object, initial encounter; Y93.89 Activity, other specified; Y99.8 Other external cause status; Y92.89 Other specified places as the place of occurrence of the external cause
CPT/HCPCS: 72131; 96372; 99284-25; J2270

== ENCOUNTER 2017-11-19 18:25 | Emergency (ER) | payer OTHER ==
[~2017-11-19] VITALS: Ht 160 cm; Wt 62.6 kg
[~2017-11-19 18:25] MED LIST changes: -AMIO200T2 PO; +AMIO200T4 PO; -ASPI81TA44 PO; +ASPI81TA59 PO; +CIPR250T PO; -FERR-26 PO; +FERR325T14 PO; +NAPR-514 PO; -NAPR500T4 PO; +POTA10TA12 PO; -POTASSIUM CHLO10 MEQ PO; +PRED50TA PO; +PROAIR HFA8.5 GM INH; +RANI150T21 PO; -RANI150T6 PO; +TRAM1TAB4 PO
--- NOTE | 2017-11-19 18:43 | PHYS DOC ---
Past Medical History Past Medical History: Asthma, COPD, Hypertension, Other Additional Past Medical Histor: low potassium, CHRONIC PAIN, Stomach Ulcers, "Bad L rotator cuff" Past Surgical History: Angioplasty, Hysterectomy, Tonsillectomy, Other Additional Past Surgical Histo: rods in her L leg &ARM,cardiac cath with stents Alcohol Use: Rarely Drug Use: None Adult General Chief Complaint Chief Complaint: SHORTNESS OF BREATH HPI HPI Patient is a 67 year old brought in by ambulance with cough short of breath cough and cold flashes headache feels like he came down with an illness in the COPD is acting up feels chest pressure. Using albuterol with minimal relief Review of Systems Review of Systems GI: Denies abdominal pain, nausea, vomiting, bloody stools or diarrhea [] : Denies dysuria or hematuria [] Musculoskeletal: Chronic pain Neurologic: Headache Endocrine: Denies polyuria or polydipsia [] All other systems were reviewed and found to be within normal limits, except as documented in this note. Current Medications Current Medications Current Medications Medications (Trade) Dose Ordered Sig/Hitesh Start Time Stop Time Status Last Admin Dose Admin Acetaminophen/ Hydrocodone Bitart (Lortab 5/325) 2 tab 1X ONCE 11/19/17 18:45 11/19/17 18:46 DC 11/19/17 19:12 2 TAB Albuterol/ Ipratropium (Duoneb) 3 ml 1X ONCE 11/19/17 18:45 11/19/17 18:46 DC 11/19/17 19:41 3 ML Doxycycline Hyclate (Vibra-Tab) 100 mg 1X ONCE 11/19/17 20:00 11/19/17 20:01 DC Ondansetron HCl (Zofran Odt) 4 mg 1X ONCE 11/19/17 20:00 11/19/17 20:01 DC Prednisone (Prednisone) 50 mg 1X ONCE 11/19/17 18:45 11/19/17 18:46 DC 11/19/17 19:12 50 MG Allergies Allergies Allergies Coded Allergies Type Severity Reaction Last Updated Verified aspirin Adverse Reaction Intermediate Nausea 04/12/16 Yes tolmetin sodium Adverse Reaction Intermediate Nausea 04/12/16 Yes Physical Exam Physical Exam Constitutional: Well developed, well nourished, no acute distress, non-toxic appearance. [] HENT: Normocephalic, atraumatic, bilateral external ears normal, oropharynx moist, no oral exudates, nose normal. [] Eyes: PERRLA, EOMI, conjunctiva normal, no discharge. [] Neck: Normal range of motion, no tenderness, supple, no stridor. [] Cardiovascular:Heart rate regular rhythm, no murmur [] Lungs & Thorax: Faint wheezing noted Abdomen: Bowel sounds normal, soft, no tenderness, no masses, no pulsatile masses. [] Skin: Warm, dry, no erythema, no rash. [] Back: Scoliosis noted Extremities: No tenderness, no cyanosis, no clubbing, ROM intact, no edema. [] Neurologic: Alert and oriented X 3, normal motor function, normal sensory function, no focal deficits noted. [] Psychologic: Affect normal, judgement normal, mood normal. [] Current Patient Data Vital Signs Vital Signs Date Time Temp Pulse Resp B/P (MAP) Pulse Ox O2 Delivery O2 Flow Rate FiO2 11/19/17 20:00 66 93 Room Air 11/19/17 19:30 177/92 (120) 11/19/17 18:25 98.3 14 98.3 Lab Values Laboratory Tests Test 11/19/17 18:30 White Blood Count 7.9 x10^3/uL (4.0-11.0) Red Blood Count 4.64 x10^6/uL (3.50-5.40) Hemoglobin 14.7 g/dL (12.0-15.5) Hematocrit 41.9 % (36.0-47.0) Mean Corpuscular Volume 90 fL (79-100) Mean Corpuscular Hemoglobin 32 pg (25-35) Mean Corpuscular Hemoglobin Concent 35 g/dL (31-37) Red Cell Distribution Width 12.9 % (11.5-14.5) Platelet Count 301 x10^3/uL (140-400) Neutrophils (%) (Auto) 59 % (31-73) Lymphocytes (%) (Auto) 31 % (24-48) Monocytes (%) (Auto) 7 % (0-9) Eosinophils (%) (Auto) 2 % (0-3) Basophils (%) (Auto) 1 % (0-3) Neutrophils # (Auto) 4.6 x10^3uL (1.8-7.7) Lymphocytes # (Auto) 2.5 x10^3/uL (1.0-4.8) Monocytes # (Auto) 0.5 x10^3/uL (0.0-1.1) Eosinophils # (Auto) 0.2 x10^3/uL (0.0-0.7) Basophils # (Auto) 0.1 x10^3/uL (0.0-0.2) Sodium Level 139 mmol/L (136-145) Potassium Level 4.0 mmol/L (3.5-5.1) Chloride Level 104 mmol/L (98-107) Carbon Dioxide Level 27 mmol/L (21-32) Anion Gap 8 (6-14) Blood Urea Nitrogen 13 mg/dL (7-20) Creatinine 0.5 mg/dL (0.6-1.0) L Estimated GFR (Cockcroft-Gault) 122.7 BUN/Creatinine Ratio 26 (6-20) H Glucose Level 124 mg/dL (70-99) H Calcium Level 9.3 mg/dL (8.5-10.1) Total Bilirubin 0.6 mg/dL (0.2-1.0) Aspartate Amino Transferase (AST) 28 U/L (15-37) Alanine Aminotransferase (ALT) 22 U/L (14-59) Alkaline Phosphatase 127 U/L (46-116) H Troponin I Quantitative < 0.017 ng/mL (0.000-0.055) JO-Rrb-U-Type Natriuretic Peptide 820 pg/mL (0-124) H Total Protein 7.7 g/dL (6.4-8.2) Albumin 3.6 g/dL (3.4-5.0) Albumin/Globulin Ratio 0.9 (1.0-1.7) L Laboratory Tests 11/19/17 18:30 Laboratory Tests 11/19/17 18:30 EKG EKG EKG shows normal sinus rhythm rate [address] changes lateral no definite ischemia. Radiology/Procedures Radiology/Procedures [] Impressions: Mitral patient chest x-ray shows no obvious pneumonia or pneumothorax. T Course & Med Decision Making Course & Med Decision Making Pertinent Labs and Imaging studies reviewed. (See chart for details) []COPD exacerbation prednisone and albuterol check chest x-ray will rule out acute coronary syndrome patient is overall well-appearing actually. Lab workup as well as chest x-ray are basically reassuring patient is feeling better after nebulizer treatment and she is complaining of nausea and headache. I think that she is having a [id number] COPD exacerbation but her oxygenation is stable her lung sounds are improving I think she warrants outpatient therapy prescription for prednisone and doxycycline was given return precautions were discussed advised to follow up with primary care doctor within next 3-5 days. Dragon Disclaimer Dragon Disclaimer This electronic medical record was generated, in whole or in part, using a voice recognition dictation system. Departure Departure Impression: Primary Impression: COPD exacerbation Disposition: HOME, SELF-CARE Condition: STABLE Referrals: UNKNOWN PCP NAME (PCP) Scripts Prednisone (PREDNISONE) 50 Mg Tablet 1 TAB PO DAILY, #5 TAB Prov: TY REN MD 11/19/17 Doxycycline Hyclate (DOXYCYCLINE HYCLATE) 100 Mg Capsule 1 CAP PO BID, #14 CAP Prov: TY REN MD 11/19/17 YT REN MD Nov 19, 2017 18:43
[2017-11-19] MEDS ORDERED: predniSONE 10 MG TABLET PO ONE (18:45)
[2017-11-19] MEDS ORDERED: HYDROcodone/APAP 5/325MG 1 TAB TABLET PO ONE (18:45)
[2017-11-19] MEDS ORDERED: IPRATRPIUM/ALBUTEROL 0.5/2.5MG 3 ML NEBU. NEB ONE (18:45)
[2017-11-19 18:58] LABS: BASO # 0.1 x10^3/uL (0.0-0.2); BASO % 1 % (0-3); EOS # 0.2 x10^3/uL (0.0-0.7); EOS % 2 % (0-3); HEMATOCRIT 41.9 % (36.0-47.0); HEMOGLOBIN 14.7 g/dL (12.0-15.5); LYMPH # 2.5 x10^3/uL (1.0-4.8); LYMPH % 31 % (24-48); MEAN CORPUSCULAR HEMOGLOBIN 32 pg (25-35); MEAN CORPUSCULAR HGB CONC 35 g/dL (31-37); MEAN CORPUSCULAR VOLUME 90 fL (79-100); MONO # 0.5 x10^3/uL (0.0-1.1); MONO % 7 % (0-9); NEUT # 4.6 x10^3uL (1.8-7.7); NEUT % 59 % (31-73); PLATELET COUNT 301 x10^3/uL (140-400); RED BLOOD COUNT 4.64 x10^6/uL (3.50-5.40); RED CELL DISTRIBUTION WIDTH 12.9 % (11.5-14.5); WHITE BLOOD COUNT 7.9 x10^3/uL (4.0-11.0)
[2017-11-19 19:12] LABS: CALCIUM 9.3 mg/dL (8.5-10.1); CREATININE 0.5 mg/dL (0.6-1.0); GFR 122.7
[2017-11-19 19:17] LABS: ALBUMIN 3.6 g/dL (3.4-5.0); ALBUMIN/GLOBULIN RATIO 0.9 (1.0-1.7); TOTAL BILIRUBIN 0.6 mg/dL (0.2-1.0); TOTAL PROTEIN 7.7 g/dL (6.4-8.2)
[2017-11-19] MEDS ORDERED: DOXYCYCLINE HYCLATE 100 MG TABLET PO ONE (20:00)
[2017-11-19] MEDS ORDERED: ONDANSETRON ODT 4 MG TAB.RAPDIS. PO ONE (20:00)
[2017-11-19 20:11] VITALS: BP 138/86
[2017-11-19] MEDS ORDERED: PRED50TA PO (20:14)
[2017-11-19] MEDS ORDERED: DOXY100C2 PO (20:14)
--- NOTE | 2017-11-19 22:13 | RAD ---
AP portable chest radiograph November 19, 2017 Clinical History: Shortness of breath for 2 days. An AP erect portable digital radiograph of the chest was obtained. Comparison study is dated 08/25/2016. 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 The cardiac silhouette is borderline enlarged. The thoracic aorta is mildly tortuous. Atherosclerotic calcification of the thoracic aorta is seen. No acute pulmonary infiltrate is noted. No pneumothorax or pleural effusion is seen. Degenerative changes are seen involving the thoracic spine and both shoulders. Impression: No acute abnormality is seen. Electronically signed by: Eliceo Aceves MD (11/19/2017 10:09 PM) [facility]
--- NOTE | 2017-11-20 06:26 | EKG ---
[facility] [address] [place] [address] Test Date: 2017-11-19 Test Time: 19:14:54 Pat Name: JAMISON EVANS Department: Room: Gender: F Signing Agent: LICO : 1950 Requested By: TY REN Order Number: [id number] Reading MD: Measurements Intervals [place] Rate: 72 P: -14 NE: 116 QRS: -10 QRSD: 82 T: 1 QT: 414 QTc: 455 Interpretive Statements SINUS RHYTHM LEFTWARD AXIS R-S TRANSITION ZONE IN V LEADS DISPLACED TO THE RIGHT QRS(T) CONTOUR ABNORMALITY CONSIDER ANTEROSEPTAL MYOCARDIAL DAMAGE POSSIBLY ABNORMAL ECG RI6.01 No previous ECG available for comparison
== END 2017-11-19 20:34 | disposition home or self-care (01) ==
LOC: ER 18:25
DX: J44.1 Chronic obstructive pulmonary disease with (acute) exacerbation (principal); I10 Essential (primary) hypertension; G89.29 Other chronic pain; Z95.5 Presence of coronary angioplasty implant and graft; Z88.6 Allergy status to analgesic agent; Z88.8 Allergy status to other drugs, medicaments and biological substances
CPT/HCPCS: 36415; 71045; 80053; 83880; 84484; 85025; 93005; 94640; 99285; J7512; J7620; Q0162